=== PATIENT | female | born 1995 | race African-American/Black ===

== ENCOUNTER 2022-03-02 07:15 | Emergency (ER) | payer MEDICAID ==
[~2022-03-02] VITALS: Ht 154.9 cm; Wt 55.0 kg
[2022-03-02] MEDS ORDERED: IBUPROFEN 600MG TABLET PO ONE (08:30)
[2022-03-02] MEDS ORDERED: IBUP-2029 MT (10:10)
[2022-03-02] MEDS ORDERED: METH-773 MT (10:10)
[2022-03-02 10:19] VITALS: BP 118/85
== END 2022-03-02 10:20 | disposition home or self-care (01) ==
LOC: ER 07:15
DX: R07.89 Other chest pain (principal); M54.9 Dorsalgia, unspecified
CPT/HCPCS: 71101; 73030; 81025; 93005; 99284